=== PATIENT | male | born 1985 | race Caucasian/White ===

== ENCOUNTER 2019-11-16 00:37 | Emergency (ER) | payer BC, SELFPAY ==
[2019-11-16 00:50] VITALS: BP 195/120; PULSE 87; RESP 16; TEMP 36.9; O2SAT 98; BMI 30.2
--- NOTE | 2019-11-16 01:07 | XR_ITS ---
PROCEDURE: XR HAND LT MIN 3V CLINICAL INDICATION: snake bite Pain COMPARISON: No exams were available for comparison FINDINGS: No fracture or dislocation. No lytic or blastic change. There is normal mineralization. The joint spaces are well-preserved. No significant degenerative/arthritic changes. No erosive changes evident. Other findings:No radiopaque foreign body IMPRESSION: No acute findings. Dictated by: Eros Arthur MD 11/16/2019 06:33 Eros Arthur MD in [place] 11/16/2019 06:33
[2019-11-16 01:33] LABS: Basophils # 0.1 K/mm3 (0-0.2); Basophils % 0.7 % (0.1-2.0); Eosinophils # 0.5 K/mm3 (0.0-0.4); Eosinophils % 4.2 % (0.1-12.0); Hematocrit 51.4 % (42.0-52.0); Hemoglobin 17.4 g/dL (14.1-18.0); Lymphocytes # 2.8 K/mm3 (0.7-4.5); Mean Corpuscular HGB Conc 33.9 g/dL (31.8-35.4); Mean Corpuscular Hemoglobin 32.7 pg (27.0-31.2); Mean Corpuscular Volume 96.5 fl (80-94); Mean Platelet Volume 7.4 fl (7.4-10.4); Monocytes # 0.8 K/mm3 (0.1-1.0); Monocytes % 6.9 % (1.7-9.3); Neutrophils # 7.1 K/mm3 (1.8-7.8); Neutrophils % 63.2 % (37.0-80.0); Platelet Count 317 K/mm3 (142-424); Red Blood Count 5.33 M/mm3 (4.60-6.20); Red Cell Distribution Width 12.7 % (11.5-17.5); White Blood Count 11.2 K/mm3 (4.8-10.8)
[2019-11-16 01:43] LABS: Alanine Aminotransferase 31 U/L (12-78); Albumin Level 4.7 g/dl (3.5-5.0); Albumin/Globulin Ratio 1.3 (1.1-1.8); Alkaline Phosphatase 93 U/L (38-126); Anion Gap 18.5 mEq/L (5-15); Aspartate Amino Transferase 44 U/L (17-59); Bilirubin,Total 0.3 mg/dl (0.2-1.3); Blood Urea Nitrogen 11 mg/dl (9-20); Calcium 9.6 mg/dl (8.4-10.2); Carbon Dioxide 27 mmol/L (22.0-30.0); Chloride 98 mmol/L (98-107); Creatine Kinase 232 U/L (55-170); Creatinine Clearance Estimated 160 mL/min (50-200); Estimated Glomerular Filt Rate 131 ml/min (>60); GFR (African American) 158 ML/MIN (>60); Globulin 3.6 g/dL (1.3-3.2); Glucose 84 mg/dl (74-100); Potassium 3.5 mmoL/L (3.5-5.1); Sodium 140 mmol/L (136-145); Total Protein,Serum 8.3 g/dl (6.3-8.2)
[2019-11-16 01:48] LABS: D-Dimer 0.58 ug/mL (0.15-8.0)
--- NOTE | 2019-11-16 01:57 | HMH.EDGENADL ---
ED Disposition Clinical Impression: Snake bite Qualifiers: Encounter type: initial encounter Qualified Code(s): W59.11XA - Bitten by nonvenomous snake, initial encounter Disposition: Left Against Medical Advice Condition on Discharge: Good Referrals: Mony Shannon [Primary Care Provider] - - Critical Care Critical Care Time: No Attestation: On 11/16/19, the high probability of a clinically significant, sudden or life threatening deterioration of the following system(s) required my full and direct attention, intervention and personal management. The time I documented below is in addition to time spent performing reported procedures but includes the following listed in this critical care notation. Medical Decision Making - Rj Inquiry Pt receiving controlled substance: No Vital Signs: 11/16/19 00:50 Temperature 98.4 F Temperature Source Oral Pulse Rate [Right] 87 Respiratory Rate 16 Blood Pressure [Right Arm] 195/120 H Blood Pressure Mean [Right Arm] 145 Blood Pressure Source [Right Arm] Automatic Cuff Blood Pressure Position [Right Arm] Sitting 02 Sat by Pulse Oximetry 98 Oxygen Delivery Method Room Air - Lab Data Lab Results 11/16/19 01:20: WBC 11.2 H, RBC 5.33, Hgb 17.4, Hct 51.4, MCV 96.5 H, MCH 32.7 H, MCHC 33.9, RDW 12.7, Plt Count 317, MPV 7.4, Neut % (Auto) 63.2, Lymph % (Auto) 25.0, [place] % (Auto) 6.9, Eos % (Auto) 4.2, Baso % (Auto) 0.7, Neut # (Auto) 7.1, Lymph # (Auto) 2.8, [place] # (Auto) 0.8, Eos # (Auto) 0.5 H, Baso # (Auto) 0.1 11/16/19 01:20: PT 10.4, INR 1.01, APTT 24.6, Fibrinogen 333 11/16/19 01:20: D-Dimer 0.58 11/16/19 01:20: Sodium 140, Potassium 3.5, Chloride 98, Carbon Dioxide 27, Anion Gap 18.5 H, BUN 11, Creatinine 0.70, Estimated Creat Clear 160, Estimated GFR 131, Est GFR ( Amer) 158, Glucose 84, Calcium 9.6, Total Bilirubin 0.3, AST 44, ALT 31, Alkaline Phosphatase 93, Total Creatine Kinase 232 H, Total Protein 8.3 H, Albumin 4.7, Globulin 3.6 H, Albumin/Globulin Ratio 1.3 Result diagrams: 11/16/19 01:20 11/16/19 01:20 Orders (Tests/Meds): ED MEDICATIONS Generic Name Dose Route Start Last Admin Trade Name Chidi PRN Reason Stop Dose Admin Lactated Ringer's 1,000 mls @ 999 mls/hr 11/16/19 01:15 11/16/19 01:21 Lactated Ringer's 1000 Ml Bag IV 11/16/19 02:15 999 mls/hr .Q1H1M MICHELE Administration ORDERS Category Date Time Status XR hand LT min 3V Stat Exams 11/16/19 01:07 Taken Medical Decision Narrative: For snakebite. Patient states he was likely bit by a snake, patient did not see the snake, he believes it was a snake because yesterday patient's daughter had seen a smaller snake near the same area. 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 Patient admits to drinking, 12 beers a day, last drink was prior to arrival. Patient arrives with spouse at bedside. Patient has 2 superficial wounds on his left upper extremity, do not appear to be deep. Patient had x-ray performed last foreign objects noted. Patient had blood work performed including coagulation factors, fibrinogen, dimer. These were all normal limits. Discussed the case with poison control who recommended observation and repeat labs in 6 hours. Michele the case with patient, patient requesting to leave. The patient left AGAINST MEDICAL ADVICE after a thorough discussion of the risks of doing so, including a discussion of potential alternative plans. These risks include but are not limited to clinical decompensation, long term care pharmacist disability and . The patient appears capable of making this decision. [Family was present for discussion and in agreement with plan.] I have advised the patient to immediately return if there are any further problems or if they change their mind about seeking further care. General Adult HPI - General Chief complaint: PAIN Stated complaint: Snake Bite left hand Time Seen by Provider: 11/16/19 00:58 Mode of Arriva
[2019-11-16 02:00] LABS: Activated Partial Thrombo Time 24.6 seconds (23.6-34.0); Fibrinogen 333 mg/dL (204-500); INR 1.01 (0.9-1.1); Prothrombin Time 10.4 seconds (9.4-11.8)
--- NOTE | 2019-11-16 02:09 | PC.NURSE ---
spoke with poison control
--- NOTE | 2019-11-16 02:09 | PC.NURSE ---
went and spoke with patient about possible admission. Pt declined and advised he would sign an AMA form
[2019-11-16 02:15] VITALS: BP 185/95; PULSE 85; RESP 16; TEMP 36.7; O2SAT 96
== END 2019-11-16 02:17 | disposition left against medical advice (07) ==
PROVIDERS: Emergency Provider Emergency Medicine; PCP Nurse Practitioner Family
DX: S61.432A Puncture wound without foreign body of left hand, initial encounter (principal); W59.11XA Bitten by nonvenomous snake, initial encounter; F10.10 Alcohol abuse, uncomplicated
CPT/HCPCS: 73130; 80053; 82550; 85025; 85378; 85384; 85610; 85730; 96365; 99283

== ENCOUNTER → 2022-08-03 12:55 | Outpatient (CLI) | payer OTHER, SELFPAY ==
--- NOTE | 2022-08-03 13:00 | XR_ITS ---
FINAL REPORT CLINICAL HISTORY: rt elbow pain FINDINGS: Right elbow Three views were obtained. There is no acute fracture or dislocation. The joint spaces appear normal. No joint effusion is identified. No soft tissue abnormality is identified. IMPRESSION: No acute process. Reviewed, Interpreted and Dictated by Sj Palafox III, MD Transcribed by Saira Dacosta Authenticated and [facility]
== END ==
PROVIDERS: PCP Nurse Practitioner Family; Visit Provider Orthopaedic Surgery
DX: M25.521 Pain in right elbow (principal)
CPT/HCPCS: 73080

== ENCOUNTER 2024-10-17 23:49 | Emergency (ER) | payer SELFPAY ==
[2024-10-17 23:58] VITALS: BP 158/113; PULSE 90; RESP 16; TEMP 36.7; O2SAT 99; BMI 27.4
--- NOTE | 2024-10-18 00:50 | PC.NURSE ---
pt ambulatory with steady gait to restroom.
--- NOTE | 2024-10-18 01:07 | XR_ITS ---
PROCEDURE INFORMATION: Exam: XR Right Shoulder Exam date and time: 10/18/2024 1:13 AM Age: 39 years old Clinical indication: Pain; Shoulder; Right; Additional info: Struck by rock back of shoulder TECHNIQUE: Imaging protocol: Radiologic exam of the right shoulder. Views: 2 or more views. COMPARISON: CR XR SCAPULA RT 10/18/2024 1:13 AM FINDINGS: Bones/joints: Normal. Soft tissues: Normal. IMPRESSION: No acute findings.
--- NOTE | 2024-10-18 01:07 | XR_ITS ---
PROCEDURE INFORMATION: Exam: XR Right Scapula Exam date and time: 10/18/2024 1:13 AM Age: 39 years old Clinical indication: Pain; Shoulder; Right; Additional info: Struck by rock back of shoulder TECHNIQUE: Imaging protocol: Radiologic exam of the right scapula. Complete exam. COMPARISON: CR XR SCAPULA RT 10/18/2024 1:13 AM FINDINGS: Bones/joints: Normal. Soft tissues: Normal. IMPRESSION: No acute findings.
[2024-10-18 01:14] LABS: Microscopic, Urine URINE MICROSCOPIC (MICROSCOPIC)
[2024-10-18] MEDS: ACETAMINOPHEN 500MG TAB 1000 MG PO (01:22)
[2024-10-18] MEDS: IBUPROFEN 600 MG TABLET PO (01:22)
[2024-10-18 01:34] LABS: Bilirubin,Urine Negative (Negative); Color,Urine YELLOW (Yellow); Glucose,Urine (UA) Negative (Negative); Ketones,Urine Negative (Negative); Leukocyte Esterase,Urine Negative (Negative); PH,Urine 6.0 (5.0-8.5); Protein,Urine TRACE (Negative); Specific Gravity, Urine <= 1.005 (1.005-1.030); Urobilinogen,Urine 0.2 EU/dl (0.2)
--- NOTE | 2024-10-18 01:45 | ED_ITS ---
Discharge Plan Disposition Patient Disposition: Home, Self-Care Condition: Good Prescriptions Prescriptions: No Action amlodipine 5 mg tablet 5 mg PO valsartan-hydrochlorothiazide 160-12.5 mg tablet 1 tab PO pantoprazole 40 mg tablet,delayed release (DR/EC) PO prednisone 10 mg tablets,dose pack See Rx Instructions PO PER PKG DIR Qty: 21 0RF Rx Instructions: PO PER PKG DIR Referrals Follow up/Referrals: Mony Shannon [Primary Care Provider, Medical] - See instructions Valentino Real MD [Staff Physician, Urology] - See instructions Referral Note: hematuria, needs follow up Activity Restrictions/Add. Instructions Additional Instructions/Restrictions: You were evaluated in the ER and are believed to be appropriate for discharge at this time. Take Tylenol and ibuprofen if needed for pain, do not exceed the recommended dose on the bottle. Drink water and eat a small snack each time you take these medications to avoid side effects. It was found that you have a small amount of blood in your urine, follow-up with urology for this problem. You have been referred to Dr. Real for this purpose. Also make an appointment with your primary care doctor for reevaluation in 2 to 3 days. Return to the ER with any new, worsening, or otherwise concerning symptoms. Clinical Impressions Clinical Impression: Pain of right scapula, Hematuria Print Language Print Language: Maori Discharge ED Provider: Joe Fitzgerald Adult HPI General Chief complaint: Extremity Injury, Upper Stated complaint: fall, hit back on rock, back, neck pain Time Seen by Provider: 10/18/24 00:51 Mode of Arrival: Ambulatory Source of Information: Patient Description of Symptoms (Recalled from ER Triage Doc. by RN): Pt presents to the ed for evaluatiuon of injury to right upper shoulder that happened after being struck by rock while working. Pt reports tenderness to area with small contusion noted. Pt reports associated tingling to right upper extremitiy. Denies LOC. History of Present Illness HPI narrative: 39-year-old male presents to the ER complaining of right shoulder pain after being struck by a rock while working. Patient reports he was bent over working on a water leak when a piece of rock fell and struck him on the right shoulder. He demonstrates approximately a 4 to 5 inch rock and states that it was sharp on 1 end where it struck him in the back of the right shoulder blade. Patient reports he had tingling in the right upper extremity, he has no numbness, range of motion is full but he does have significant tenderness over the right scapula. Patient was not struck on the head or neck, no chest pain or shortness of breath, no difficulty breathing, no other complaints or concerns. No other injuries. Related Data Home Medications ?Medication ?Instructions ?Recorded ?Confirmed amlodipine 5 mg tablet 5 mg PO 08/03/22 03/14/23 valsartan 160 1 tab PO 08/03/22 03/14/23 mg-hydrochlorothiazide 12.5 mg tablet pantoprazole 40 mg tablet,delayed mg PO 03/14/2303/14 release Previous Rx's ?Medication ?Instructions ?Recorded prednisone 10 mg tablets in a dose See Rx Instructions PO PER PKG DIR 03/14/23 pack #21 tabs Allergies Allergy/AdvReac Type Severity Reaction Status Date / Time No Known Allergies Allergy Verified 03/14/23 15:43 [facility] Disclaimer: The information contained in this section may have been updated after the patient was seen, as this information can be updated by other users. Medical History Heart murmur Hypertension Surgical History No significant past surgical history Family History Mother Diabetes Hypertension Hyperlipidemia Father Coronary artery disease Social History Smoking Status: Current every day smoker second hand exposure: Yes alcohol intake: current alcohol intake frequency: holidays/special occasions only substance use type: denies use current occupational status: employed Travel in the last 8 weeks?: None household members: spouse and family housing: house marital status: Have you lived/traveled outside [place] in past 30 days?: No Contact w/someone who lives/traveled outside [place] past 30 days?: No Exposure to someone with infectious disease in past 14 days?: No Do you have a fever (greater than 100.4 F or 38 C)?: No Have you tested positive for COVID-19?: No Exposed to someone with COVID-19 in past 14 days?: No Do you have a sore throat?: No Do you have a cough?: No Do you have any weakness?: No Do you have any diarrhea?: No Are you experiencing any unusual bleeding?: No Do you have any muscle aches/pain?: No Do you have any abdominal pain?: No Are you experiencing loss of taste or smell?: No Other Medical History Have you received the Flu Vaccine for this season: No Have you received the Pneumonia Vaccine: No ROS Obtained: Yes Systems reviewed as appropriate & no additional complaints except as documented per HPI Physical Exam General General appearance: alert and in no apparent distress Head Head exam: atraumatic and normocephalic Eye Eye exam: Present PERRL and EOMI ENT ENT exam: Present mucous membranes moist Neck Neck exam: Present normal inspection and full ROM; Absent tenderness Chest Chest inspection: Present symmetric chest wall rise Respiratory Respiratory exam: Present normal lung sounds bilaterally; Absent respiratory distress, wheezes or stridor Cardiovascular Cardiovascular exam: Present regular rate and normal rhythm Extremities Exam Extremities exam: Present full ROM, tenderness (Over the spine of the right scapula without crepitus or deformity, very faint overlying contusion but no hematoma), normal capillary refill and other (Neurovascularly intact throughout); Absent edema or joint swelling Neurological Exam Neurological exam: Present alert and oriented X3; Absent motor sensory deficit Psychiatric Psychiatric exam: Present normal affect and normal mood Skin Skin exam: Present warm and dry Medical Decision Making Medical Records Medical records reviewed: Yes I reviewed the patient's medical records. Screening: Per USPSTF and CDC recommendations, given the prevalence of disease in our region, it is our hospital?s policy to screen for HIV and viral Hepatitis for all patients aged 18 and over and those with ongoing risk factors. Rj Inquiry Pt receiving controlled substance: No Vital Signs: 10/17/24 23:58 Temperature 98.1 F Temperature Source Oral Pulse Rate [Radial] 90 Respiratory Rate 16 Blood Pressure [Right Radial Artery] 158/113 H Blood Pressure Mean [Right Radial Artery] 128 Blood Pressure Position [Right Radial Artery] Sitting 02 Sat by Pulse Oximetry 99 Oxygen Delivery Method Room Air Lab Data Lab Results 10/18/24 00:01: Urine Color Yellow, Urine Appearance Clear, Urine pH 6.0, Ur Specific [place] <= 1.005, Urine Protein Trace, Urine Glucose (UA) Negative, Urine Ketones Negative, Urine Blood 2+ A, Urine Nitrate Negative, Urine Bilirubin Negative, Urine Urobilinogen 0.2, Ur Leukocyte Esterase Negative Orders (Tests/Meds): ED MEDICATIONS Discontinued Medications Generic Name Dose Route Start Last Admin Trade Name Chidi PRN Reason Stop Dose Admin Acetaminophen 1,000 mg 10/18/24 01:16 10/18/24 01:22 Acetaminophen 500mg Tab PO 10/18/24 01:17 1,000 mg ONCE ONE Administration Ibuprofen 600 mg 10/18/24 01:16 10/18/24 01:22 Ibuprofen 600 Mg Tablet PO 10/18/24 01:17 600 mg ONCE ONE Administration ORDERS Category Date Time Status Scapula XR right [XR scapula RT] Stat Exams 10/18/24 01:07 Completed Shoulder XR right miminum 2 views [XR shoulder RT min Exams 10/18/24 01:07 Completed 2V] Stat UA [Urinalysis and Microscopic] Stat Lab 10/18/24 00:01 Results Medical Decision Narrative: In summary, this 39-year-old male presents to the emergency department today with right shoulder pain after being struck in the back of the right shoulder with a rock while working. On initial evaluation patient is hemodynamically stable, afebrile, GCS 15, physical exam only notable for tenderness over the spine of the right scapula with overlying contusion but no deformity or crepitus, no swelling, range of motion is full, cardiopulmonary exam benign, neurovascularly intact throughout, no neurologic deficits the patient reports after the injury he had tingling initially. No injury to the head or neck appreciated and patient reports no strike to this area either. Differential diagnosis includes but is not limited to fracture, dislocation, soft tissue injury. Based on these concerns, I ordered x-ray right shoulder and scapula. Patient had taken 200 mg ibuprofen prior to arrival, after discussion with him he received 600 mg of ibuprofen and 1000 mg of Tylenol in the ER. These were administered for pain control. X-rays personally interpreted do not demonstrate acute osseous injury, I do not appreciate fracture or dislocation. See radiology read for final interpretation. On reassessment patient continues to be stable, he still has tenderness but otherwise symptoms are controlled and he is appropriate for discharge at this time. Patient reports he is off work for the weekend so he does not require a note for work. Patient was given instructions on symptomatic monitoring and management, follow up instructions, and return precautions for the emergency department. Patient indicated understanding and was discharged in stable condition. Critical Care Critical Care Time Critical Care Time: No
[2024-10-18 01:47] VITALS: BP 148/99; PULSE 70; RESP 16; TEMP 36.7; O2SAT 100
[2024-10-18 01:49] LABS: RBC,Urine Occasional #/hpf (0-3); Squamous Epithelial Cell,Urine Occasional #/hpf (0-5)
== END 2024-10-18 01:48 | disposition home or self-care (01) ==
PROVIDERS: Emergency Provider Emergency Medicine; PCP Nurse Practitioner Family
DX: M25.511 Pain in right shoulder (principal); R31.9 Hematuria, unspecified; W22.8XXA Striking against or struck by other objects, initial encounter
CPT/HCPCS: 73010; 73030; 81001; 99283